=== PATIENT | female | born 1990 | race Caucasian/White ===

== ENCOUNTER 2019-03-11 19:57 | Observation (INO) | payer MEDICAID ==
[2019-03-11] MEDS ORDERED: Sodium Chloride 0.9% 10 ML Syringe FLUSH PRN (20:39)
--- NOTE | 2019-03-11 20:43 | EDM.PDOC ---
ED HPI GENERAL MEDICAL PROBLEM - General Chief Complaint: Abdominal Pain Stated Complaint: ABDOMINAL PAIN Time Seen by Provider: 03/11/19 20:36 Source of Information: Reports: Patient, RN Notes Reviewed History Limitations: Reports: No Limitations - History of Present Illness INITIAL COMMENTS - FREE TEXT/NARRATIVE: 28-year-old female presents emergency department today complaint of abdominal pain, states the abdominal pain has been ongoing for 4 days and is progressively getting worse does wax and wane predominantly in the right upper quadrant. Initially had nausea and vomiting that now has resolved but still gets nausea alone, has had difficulty with diarrhea. History of section for surgeries she does not appreciate any change with abdominal pain with food denies any fevers Bilateral Abdomen Pain Score (Numeric/FACES): 7 - Related Data Allergies Allergy/AdvReac Type Severity Reaction Status Date / Time No Known Allergies Allergy Verified 03/11/19 20:27 Home Meds: Home Meds Omeprazole 40 mg PO DAILY 03/11/19 [History] Past Medical History HEENT History: Reports: Impaired Vision Cardiovascular History: Reports: Heart Murmur Respiratory History: Reports: Asthma Gastrointestinal History: Reports: GERD NON DESTRUCTIVE TESTING INSPECTOR History: Reports: Other NON DESTRUCTIVE TESTING INSPECTOR History: high risk Psychiatric History: Reports: Anxiety Dermatologic History: Reports: Eczema - Infectious Disease History Infectious Disease History: Reports: Chicken Pox - Past Surgical History Female Surgical History: Reports: Section, Other (See Below) Other Female Surgeries/Procedures: Social & Family History - Family History Family Medical History: Noncontributory - Tobacco Use Smoking Status *Q: Never Smoker - Caffeine Use Caffeine Use: Reports: Coffee, Energy Drinks, Soda Caffeine Use Comment: weekly use, not often - Alcohol Use Days Per Week of Alcohol Use: 2 Number of Drinks Per Day: 3 Total Drinks Per Week: 6 - Recreational Drug Use Recreational Drug Use: No ED ROS GENERAL - Review of Systems Review Of Systems: See Below Constitutional: Denies: Fever, Chills HEENT: Reports: No Symptoms Respiratory: Reports: No Symptoms Cardiovascular: Reports: No Symptoms GI/Abdominal: Reports: Abdominal Pain, Diarrhea, Flatus, Nausea, Vomiting : Reports: No Symptoms Musculoskeletal: Reports: No Symptoms Skin: Reports: No Symptoms ED EXAM, GI/ABD - Physical Exam Exam: See Below Exam Limited By: No Limitations General Appearance: Alert, WD/WN, No Apparent Distress Neck: Normal Inspection, Supple, Non-Tender, Full Range of Motion Respiratory/Chest: No Respiratory Distress, Lungs Clear, Normal Breath Sounds, No Accessory Muscle Use, Chest Non-Tender Cardiovascular: Regular Rate, Rhythm, No Murmur GI/Abdominal Exam: Normal Bowel Sounds, Soft, Distended, Tender (Right upper quadrant pain) Course - Vital Signs Last Recorded V/S: Last Vital Signs Temp 98.7 F 03/11/19 20:27 Pulse 96 03/11/19 20:27 Resp 18 03/11/19 20:27 BP 136/83 03/11/19 20:27 Pulse Ox 97 03/11/19 20:27 - Orders/Labs/Meds Orders: Active Orders 24 hr Category Date Time Status Peripheral IV Care [RC] . DIRECTED Care 03/11/19 20:40 Active Iopamidol [Isovue-300 (61%)] Med 03/11/19 21:30 Active 129 ml IV . DIRECTED Lactated Ringers [Ringers, Lactated] 1,000 ml Med 03/11/19 20:45 Active IV ASDIRECTED Sodium Chloride 0.9% [Normal Saline] 80 ml Med 03/11/19 21:30 Active IV ASDIRECTED Sodium Chloride 0.9% [Saline Flush] Med 03/11/19 20:39 Active 10 ml FLUSH ASDIRECTED PRN Peripheral IV Insertion Adult [OM.PC] Urgent Oth 03/11/19 20:39 Ordered Medication Orders Lactated Ringer's (Ringers, Lactated) 1,000 mls @ 999 mls/hr IV ASDIRECTED [facility] Last Admin: 03/11/19 21:09 Dose: 999 mls/hr Sodium Chloride (Normal Saline) 80 mls @ 3 mls/sec IV ASDIRECTED STEPHEN Last Admin: 03/11/19 21:33 Dose: 3 mls/sec Iopamidol (Isovue-300 (61%)) 129 ml IV . DIRECTED [facility] Last Admin: 03/11/19 21:34 Dose: 129 ml Sodium Chloride (Saline Flush) 10 ml FLUSH ASDIRECTED PRN PRN Reason: Keep Vein Open Last Admin: 03/11/19 21:33 Dose: 10 ml Labs: Laboratory Tests 03/11/19 03/11/19 03/11/19 Range/Units 20:39 20:39 20:39 WBC 13.5 H (4.5-11.0) K/uL RBC 4.97 (3.30-5.50) M/uL Hgb 12.8 (12.0-15.0) g/dL Hct 39.9 (36.0-48.0) % MCV 80 (80-98) fL MCH 26 L (27-31) pg MCHC 32 (32-36) % Plt Count 246 (150-400) K/uL Neut % (Auto) 72 H (36-66) % Lymph % (Auto) 16 L (24-44) % [place] % (Auto) 9 H (2-6) % Eos % (Auto) 3 (2-4) % Baso % (Auto) 0 (0-1) % Sodium 137 L (140-148) mmol/L Potassium 3.3 L (3.6-5.2) mmol/L Chloride 101 (100-108) mmol/L Carbon Dioxide 26 (21-32) mmol/L Anion Gap 13.3 (5.0-14.0) mmol/L BUN 10 (7-18) mg/dL Creatinine 0.6 (0.6-1.0) mg/dL Est Cr Clr Drug Dosing 116.95 mL/min Estimated GFR (MDRD) > 60 (>60) Glucose 109 H (74-106) mg/dL Lactic Acid 1.6 (0.4-2.0) mmol/L Calcium 8.6 (8.5-10.1) mg/dL Total Bilirubin 0.5 (0.2-1.0) mg/dL AST 49 H (15-37) U/L ALT 71 (12-78) U/L Alkaline Phosphatase 103 (46-116) U/L Total Protein 7.3 (6.4-8.2) g/dL Albumin 3.3 L (3.4-5.0) g/dL Globulin 4.0 H (2.3-3.5) g/dL Albumin/Globulin Ratio 0.8 L (1.2-2.2) Lipase 68 L (73-393) U/L Urine Color (YELLOW) Urine Appearance (CLEAR) Urine pH (5.0-8.0) Ur Specific [address] (1.008-1.030) Urine Protein (NEGATIVE) mg/dL Urine Glucose (UA) (NEGATIVE) mg/dL Urine Ketones (NEGATIVE) mg/dL Urine Occult Blood (NEGATIVE) Urine Nitrite (NEGATIVE) Urine Bilirubin (NEGATIVE) Urine Urobilinogen (0.2-1.0) EU/dL Ur Leukocyte Esterase (NEGATIVE) Urine RBC (0-5) Urine WBC (0-5) Ur Epithelial Cells Amorphous Sediment Urine Bacteria Urine Mucus Urine HCG, Qual 03/11/19 03/11/19 Range/Units 20:48 20:48 WBC (4.5-11.0) K/uL RBC (3.30-5.50) M/uL Hgb (12.0-15.0) g/dL Hct (36.0-48.0) % MCV (80-98) fL MCH (27-31) pg MCHC (32-36) % Plt Count (150-400) K/uL Neut % (Auto) (36-66) % Lymph % (Auto) (24-44) % [place] % (Auto) (2-6) % Eos % (Auto) (2-4) % Baso % (Auto) (0-1) % Sodium (140-148) mmol/L Potassium (3.6-5.2) mmol/L Chloride (100-108) mmol/L Carbon Dioxide (21-32) mmol/L Anion Gap (5.0-14.0) mmol/L BUN (7-18) mg/dL Creatinine (0.6-1.0) mg/dL Est Cr Clr Drug Dosing mL/min Estimated GFR (MDRD) (>60) Glucose (74-106) mg/dL Lactic Acid (0.4-2.0) mmol/L Calcium (8.5-10.1) mg/dL Total Bilirubin (0.2-1.0) mg/dL AST (15-37) U/L ALT (12-78) U/L Alkaline Phosphatase (46-116) U/L Total Protein (6.4-8.2) g/dL Albumin (3.4-5.0) g/dL Globulin (2.3-3.5) g/dL Albumin/Globulin Ratio (1.2-2.2) Lipase (73-393) U/L Urine Color Yellow (YELLOW) Urine Appearance Clear (CLEAR) Urine pH 7.5 (5.0-8.0) Ur Specific [address] 1.015 (1.008-1.030) Urine Protein Negative (NEGATIVE) mg/dL Urine Glucose (UA) Negative (NEGATIVE) mg/dL Urine Ketones Negative (NEGATIVE) mg/dL Urine Occult Blood Moderate H (NEGATIVE) Urine Nitrite Negative (NEGATIVE) Urine Bilirubin Negative (NEGATIVE) Urine Urobilinogen 2.0 H (0.2-1.0) EU/dL Ur Leukocyte Esterase Negative (NEGATIVE) Urine RBC 5-10 H (0-5) Urine WBC 0-5 (0-5) Ur Epithelial Cells Moderate Amorphous Sediment Few Urine Bacteria Few Urine Mucus Few Urine HCG, Qual Negative Meds: Medications Generic Name Dose Route Start Last Admin Trade Name Freq PRN Reason Stop Dose Admin Lactated Ringer's 1,000 mls @ 999 mls/hr 03/11/19 20:45 03/11/19 21:09 Ringers, Lactated IV 999 mls/hr ASDIRECTED STEPHEN Administration Sodium Chloride 80 mls @ 3 mls/sec 03/11/19 21:30 03/11/19 21:33 Normal Saline IV 3 mls/sec ASDIRECTED STEPHEN Administration Iopamidol 129 ml 03/11/19 21:30 03/11/19 21:34 Isovue-300 (61%) IV 129 ml . DIRECTED STEPHEN Administration Sodium Chloride 10 ml 03/11/19 20:39 03/11/19 21:33 Saline Flush FLUSH 10 ml ASDIRECTED PRN Administration Keep Vein Open Discontinued Medications Generic Name Dose Route Start Last Admin Trade Name Freq PRN Reason Stop Dose Admin Fentanyl 50 mcg 03/11/19 23:00 Sublimaze IVPUSH 03/11/19 23:01 ONETIME ONE Ondansetron HCl 4 mg 03/11/19 23:00 Zofran IVPUSH 03/11/19 23:01 ONETIME ONE Departure - Departure Time of Disposition: 23:09 Disposition: Admitted As Inpatient 65 Condition: Fair Clinical Impression: Acute cholecystitis - Discharge Information Referrals: PCP,None [Primary Care Provider] - Forms: ED Department Discharge - My Orders Last 24 Hours: My Active Orders 03/11/19 20:39 Sodium Chloride 0.9% [Saline Flush] 10 ml FLUSH ASDIRECTED PRN Peripheral IV Insertion Adult [OM.PC] Urgent 03/11/19 20:40 Peripheral IV Care [RC] . DIRECTED 03/11/19 20:45 Lactated Ringers [Ringers, Lactated] 1,000 ml IV ASDIRECTED 03/11/19 21:30 Iopamidol [Isovue-300 (61%)] 129 ml IV . DIRECTED Sodium Chloride 0.9% [Normal Saline] 80 ml IV ASDIRECTED - Assessment/Plan Last 24 Hours: My Active Orders 03/11/19 20:39 Sodium Chloride 0.9% [Saline Flush] 10 ml FLUSH ASDIRECTED PRN Peripheral IV Insertion Adult [OM.PC] Urgent 03/11/19 20:40 Peripheral IV Care [RC] . DIRECTED 03/11/19 20:45 Lactated Ringers [Ringers, Lactated] 1,000 ml IV ASDIRECTED 03/11/19 21:30 Iopamidol [Isovue-300 (61%)] 129 ml IV . DIRECTED Sodium Chloride 0.9% [Normal Saline] 80 ml IV ASDIRECTED Plan: Assessment Acuity = acute Site and laterality = acute cholecystitis Etiology = unclear etiology Manifestations = abdominal pain, nausea, vomiting Location of injury = Home Lab values = WBC elevated 13.5 consistent leukocytosis, potassium low at 3.3 consistent hypokalemia RBC 5-10 in the urine consistent hematuria beta-hCG is negative CT scan describes acute cholecystitis above Plan Called discussed case with Dr. Mar general surgery at 2300 kindly agreed to come and evaluate the patient in the hospital plan start antibiotics of Mefoxin nothing by mouth IN THE MORNING SURGICAL INTERVENTION IN THE MORNING This note was dictated using [employer] voice recognition software please call with any questions on syntax or grammar.
[2019-03-11] MEDS ORDERED: Lactated Ringers 1,000 ML IV SCH (20:45)
[2019-03-11] MEDS ORDERED: Iopamidol 612 MG/ML 150 ML Bottle IV SCH (21:30)
[2019-03-11] MEDS ORDERED: Sodium Chloride 0.9% 80 ML IV SCH (21:30)
--- NOTE | 2019-03-11 22:54 | CRLCT ---
INDICATION: Right upper quadrant pain TECHNIQUE: CT abdomen and pelvis acquired with IV contrast. 129 cc Isovue-300 COMPARISON: None FINDINGS: Lower chest: Unremarkable. Liver: Unremarkable. Spleen: Unremarkable. Pancreas: Unremarkable. Gallbladder and bile ducts: Distended gallbladder with gallbladder wall thickening, trace pericholecystic fluid and pericholecystic fat stranding. Findings consistent with acute cholecystitis. Kidneys: Unremarkable. Adrenal glands: Unremarkable. GI tract: Unremarkable. Appendix is normal. Vascular structures: Unremarkable. Lymph nodes: Unremarkable. Miscellaneous: Unremarkable. No free air. Small amount of low-density free fluid in the pelvis. Pelvic Organs: Unremarkable. Bones: Unremarkable for age. IMPRESSION: Distended gallbladder with gallbladder wall thickening, trace pericholecystic fluid and pericholecystic fat stranding. Findings consistent with acute cholecystitis. Right upper quadrant ultrasound may be helpful to better characterize. Dictated by Michael Mancuso MD @ 03/11/2019 10:53:03 PM Please note that all CT scans at this facility use dose modulation, iterative reconstruction, and/or weight-based dosing when appropriate to reduce radiation dose to as low as reasonably achievable. Dictated by: Michael Mancuso MD @ 03/11/2019 22:53:08 (Electronically Signed)
[2019-03-11] MEDS ORDERED: Ondansetron 4 MG/2 ML SDV IVPUSH ONE (23:00)
[2019-03-11] MEDS ORDERED: fentaNYL 100 MCG/2 ML SDV IVPUSH ONE (23:00)
[2019-03-12] MEDS: D5 1/2 NS w/ 20 mEq/L KCl 1,000 ML IV SCH ×3 (00:16→19:50)
[2019-03-12] MEDS: fentaNYL 100 MCG/2 ML SDV IVPUSH PRN ×5 (00:26→19:13)
[2019-03-12] MEDS: cefOXitin 2 GM in Sodium Chloride 0.9% 50 ML IV SCH ×4 (00:30→22:46)
[2019-03-12] MEDS ORDERED: Bupivacaine 0.5% 50 ML MDV ONE (07:15)
[2019-03-12] MEDS ORDERED: Lidocaine 1% with EPINEPHrine 1:100,000 50 ML MDV ONE (07:15)
[2019-03-12] MEDS ORDERED: fentaNYL 250 MCG/5 ML SDV ONE ×2 (07:18→07:48)
[2019-03-12] MEDS ORDERED: Succinylcholine 200 MG/10 ML MDV ONE (07:21)
[2019-03-12] MEDS ORDERED: Propofol 200 MG/20 ML SDV ONE (07:21)
[2019-03-12] MEDS ORDERED: Rocuronium 50 MG/5 ML Vial ONE (07:21)
[2019-03-12] MEDS ORDERED: Ondansetron 4 MG/2 ML SDV ONE (07:21)
[2019-03-12] MEDS ORDERED: Dexamethasone 4 MG/ML SDV ONE (07:21)
[2019-03-12] MEDS ORDERED: Glycopyrrolate 0.2 MG/ML 5 ML MDV ONE (07:21)
[2019-03-12] MEDS ORDERED: Neostigmine Methylsulfate 1 MG/ML 5 ML Syringe ONE (07:21)
[2019-03-12] MEDS ORDERED: Lidocaine 1% 2 ML ONE (07:44)
--- NOTE | 2019-03-12 08:20 | CRLUS ---
INDICATION: Right upper quadrant pain TECHNIQUE: Ultrasound abdomen limited. COMPARISON: CT abdomen pelvis March 11, 2019 FINDINGS: Gallbladder: At least 1 stone is present in the cystic duct. There is wall thickening measuring 5 mm. There is also pericholecystic fluid. Common bile duct: 6 mm. IMPRESSION: Cholelithiasis with gallbladder wall thickening consistent with acute cholecystitis. Dictated by Manjinder Wheeler MD @ Mar 12 2019 8:11AM Signed by Dr. Manjinder Wheeler @ Mar 12 2019 8:18AM
[2019-03-12] MEDS ORDERED: Lactated Ringers 1,000 ML ONE (08:45)
[2019-03-12] MEDS ORDERED: hydrOXYzine HCl 100 MG/2 ML SDV IM ONE (09:22)
[2019-03-12] MEDS ORDERED: fentaNYL 100 MCG/2 ML SDV IVPUSH ONE (09:22)
--- NOTE | 2019-03-12 13:07 | OR ---
DATE OF PROCEDURE: 03/12/2019 SURGEON: Edinson Mar MD PREOPERATIVE DIAGNOSIS: Acute cholecystitis. POSTOPERATIVE DIAGNOSES: Acute cholecystitis with cholelithiasis. PROCEDURE: Laparoscopic cholecystectomy. ANESTHESIA: General endotracheal. INDICATION: This 28-year-old white female was admitted last night with about 4 days of right upper quadrant abdominal pain. She had a CT scan of her abdomen and pelvis, which showed acute cholecystitis. There was thickened gallbladder wall and pericholecystic fluid. No stones were seen. Her ductal system was unremarkable. Her liver functions showed alkaline phosphatase and total bilirubin to be normal. She is taken to the operating room for a laparoscopic cholecystectomy. I counseled her for surgery, including risks and alternatives, and she gave her informed consent to proceed. DESCRIPTION OF PROCEDURE: After adequate general endotracheal anesthesia was obtained, the patient's abdomen was prepped and draped in the usual sterile fashion. The leg compression stockings were in place and used during the entire procedure. Time-out was held. An infraumbilical semicircular incision was made. Through this incision, a 12-mm port was introduced into the abdomen. The camera was introduced into the abdomen, and the abdomen was insufflated to a pressure of 15 mmHg with carbon dioxide. No evidence of intraabdominal injury was seen. Under direct vision, a 12-mm port was placed in the epigastrium and a 5-mm port was placed in the right lower quadrant. The gallbladder was noted to be erythematous and encased with omentum. The omentum was carefully dissected free. The gallbladder was quite thick. We were able to dissect the cystic duct and arteries free and drain all this process. The gallbladder was open. We aspirated out clear bile consistent with chronic cystic duct obstruction. The cystic duct was clipped 3 times proximally, once distally and divided between clips. The cystic artery was clipped a couple of times proximally, once distally and divided between clips. The gallbladder was then dissected free from the gallbladder bed using Bovie electrocautery. The gallbladder basically fell apart. It was placed in a sample retrieval bag and elevated up through the anterior abdominal wall via the epigastric port site. The epigastric port was reintroduced back in the abdomen. The gallbladder bed was irrigated and suctioned dry. All looked well. Because of all the inflammation and spillage of bile, we left a Niko-Toscano drain in place. This was brought out through the 5-mm port site in the right lower quadrant and was placed up in the area of the gallbladder fossa. The fascial closure device was then used to place a 0 Vicryl stitch in the epigastric fascial defect. The infraumbilical port was removed and an interrupted stitch of #1 Vicryl was used to close this fascial defect. The Niko-Toscano drain was anchored with #1 Vicryl suture. Lidocaine 1% with epinephrine in a 50:50 mix with 0.5% Marcaine was infiltrated about all incisions. 4-0 Vicryl using a subcuticular stitch was placed to approximate the skin in the infraumbilical and epigastric incisions. Dermabond was applied and a sterile dressing to the Niko-Toscano drain. The anesthesia was reversed. She was extubated and brought to recovery room in a good condition. Edinson Mar MD /[id number]
[2019-03-12] MEDS: Acetaminophen/HYDROcodone 325-5 MG Tab PO PRN ×2 (18:02→22:46)
[2019-03-13] MEDS: Acetaminophen/HYDROcodone 325-5 MG Tab PO PRN ×3 (03:10→11:13)
[2019-03-13] MEDS: D5 1/2 NS w/ 20 mEq/L KCl 1,000 ML IV SCH (04:26)
[2019-03-13] MEDS: cefOXitin 2 GM in Sodium Chloride 0.9% 50 ML IV SCH ×3 (07:17→23:15)
[2019-03-13] MEDS: Ondansetron 4 MG/2 ML SDV IVPUSH PRN ×2 (08:53→13:30)
[2019-03-13] MEDS ORDERED: Bisacodyl 10 MG Supp RECTAL ONE ×2 (10:12→13:00)
--- NOTE | 2019-03-13 10:18 | PCM.SURGPN ---
- General Info Date of Service: 03/13/19 Date of Surgery/Procedure: 03/12/19 POD#: 1 Post-Op Diagnosis: Acute cholecystitis with cholelithiasis Functional Status: Reports: Pain Controlled, Ambulating, Urinating. Denies: Tolerating Diet (Ate regular diet which caused nausea. ) - Review of Systems General: Reports: No Symptoms HEENT: Reports: No Symptoms Pulmonary: Reports: No Symptoms Cardiovascular: Reports: No Symptoms Gastrointestinal: Reports: Nausea. Denies: Flatus Genitourinary: Reports: No Symptoms Musculoskeletal: Reports: No Symptoms Skin: Reports: No Symptoms Neurological: Reports: No Symptoms Psychiatric: Reports: No Symptoms - Patient Data Vitals - Most Recent: Last Vital Signs Temp 96.9 F 03/13/19 07:22 Pulse 57 L 03/13/19 07:22 Resp 20 03/13/19 07:22 BP 101/64 03/13/19 07:22 Pulse Ox 98 03/13/19 07:22 Weight - Most Recent: 190 lb 4.143 oz I&O - Last 24 Hours: Intake & Output 03/12/19 03/13/19 03/13/19 22:59 06:59 14:59 Intake Total 350 2684 170 Output Total 1050 25 Balance -700 2659 170 Lab Results Last 24 Hrs: Laboratory Results - last 24 hr 03/13/19 03/13/19 Range/Units 07:01 07:01 WBC 9.7 (4.5-11.0) K/uL RBC 4.51 (3.30-5.50) M/uL Hgb 11.7 L (12.0-15.0) g/dL Hct 37.1 (36.0-48.0) % MCV 82 (80-98) fL MCH 26 L (27-31) pg MCHC 32 (32-36) % Plt Count 222 (150-400) K/uL Total Bilirubin 0.5 (0.2-1.0) mg/dL Direct Bilirubin 0.15 (0.0-0.2) mg/dL Indirect Bilirubin 0.35 AST 65 H (15-37) U/L ALT 99 H (12-78) U/L Alkaline Phosphatase 95 (46-116) U/L Total Protein 6.6 (6.4-8.2) g/dL Albumin 2.8 L (3.4-5.0) g/dL Globulin 3.8 H (2.3-3.5) g/dL Albumin/Globulin Ratio 0.7 L (1.2-2.2) Royal Results Last 24 Hrs: Microbiology 03/12/19 10:46 Gram Stain - Final Gallbladder Wound Culture - Preliminary NO GROWTH AFTER 1 DAY Anaerobic Culture - Preliminary NO GROWTH AFTER 1 DAY Med Orders - Current: Current Medications Hydrocodone Bitart/Acetaminophen ([place] 325-5 Mg) 2 tab PO Q4H PRN PRN Reason: Abdominal Pain Last Admin: 03/13/19 07:10 Dose: 2 tab Bisacodyl (Dulcolax) 10 mg RECTAL ONETIME ONE Stop: 03/13/19 10:13 Fentanyl (Sublimaze) 50 mcg IVPUSH Q4H PRN PRN Reason: Pain (severe 7-10) Last Admin: 03/12/19 19:13 Dose: 50 mcg Cefoxitin Sodium 2 gm/ Sodium (Chloride) 50 mls @ 100 mls/hr IV Q8H STEPHEN Last Admin: 03/13/19 07:17 Dose: 100 mls/hr Potassium Chloride/Dextrose/Sod Cl (D5 1/2 Ns W/ 20 Meq/L Kcl) 1,000 mls @ 125 mls/hr IV ASDIRECTED STEPHEN Last Admin: 03/13/19 04:26 Dose: 125 mls/hr Ondansetron HCl (Zofran) 4 mg IVPUSH Q4H PRN PRN Reason: Nausea/Vomiting Last Admin: 03/13/19 08:53 Dose: 4 mg Sodium Chloride (Saline Flush) 10 ml FLUSH ASDIRECTED PRN PRN Reason: Keep Vein Open Last Admin: 03/11/19 21:33 Dose: 10 ml Discontinued Medications Bupivacaine HCl (Marcaine 0.5%) Confirm Administered Dose 50 ml .ROUTE .STK-MED ONE Stop: 03/12/19 07:16 Last Admin: 03/12/19 08:11 Dose: 20 ml Dexamethasone (Dexamethasone) Confirm Administered Dose 4 mg .ROUTE .STK-MED ONE Stop: 03/12/19 07:22 Fentanyl (Sublimaze) 50 mcg IVPUSH ONETIME ONE Stop: 03/11/19 23:01 Last Admin: 03/11/19 23:20 Dose: 50 mcg Fentanyl (Sublimaze) 50 mcg IVPUSH Q6H PRN PRN Reason: Pain (severe 7-10) Last Admin: 03/12/19 04:43 Dose: 50 mcg Fentanyl (Sublimaze) Confirm Administered Dose 250 mcg .ROUTE .STK-MED ONE Stop: 03/12/19 07:19 Fentanyl (Sublimaze) Confirm Administered Dose 250 mcg .ROUTE .STK-MED ONE Stop: 03/12/19 07:49 Fentanyl (Sublimaze) 50 mcg IVPUSH ONETIME ONE Stop: 03/12/19 09:23 Last Admin: 03/12/19 09:29 Dose: 50 mcg Glycopyrrolate (Robinul) Confirm Administered Dose 1 mg .ROUTE .STK-MED ONE Stop: 03/12/19 07:22 Hydroxyzine HCl (Vistaril) 75 mg IM ONETIME ONE Stop: 03/12/19 09:23 Last Admin: 03/12/19 09:29 Dose: 75 mg Lactated Ringer's (Ringers, Lactated) 1,000 mls @ 999 mls/hr IV ASDIRECTED [facility] Last Admin: 03/11/19 21:09 Dose: 999 mls/hr Sodium Chloride (Normal Saline) 80 mls @ 3 mls/sec IV ASDIRECTED [facility] Last Admin: 03/11/19 21:33 Dose: 3 mls/sec Lidocaine HCl (Xylocaine-Mpf 1%) Confirm Administered Dose 2 mls @ as directed .ROUTE .STK-MED ONE Stop: 03/12/19 07:45 Lactated Ringer's (Ringers, Lactated) Confirm Administered Dose 1,000 mls @ as directed .ROUTE .STK-MED ONE Stop: 03/12/19 08:46 Iopamidol (Isovue-300 (61%)) 129 ml IV . DIRECTED [facility] Last Admin: 03/11/19 21:34 Dose: 129 ml Lidocaine/Epinephrine (Xylocaine 1% With Epinephrine 1:100,000) Confirm Administered Dose 50 ml .ROUTE .STK-MED ONE Stop: 03/12/19 07:16 Last Admin: 03/12/19 08:11 Dose: 20 ml Neostigmine Methylsulfate (Neostigmine) Confirm Administered Dose 5 mg .ROUTE .STK-MED ONE Stop: 03/12/19 07:22 Ondansetron HCl (Zofran) 4 mg IVPUSH ONETIME ONE Stop: 03/11/19 23:01 Last Admin: 03/11/19 23:17 Dose: 4 mg Ondansetron HCl (Zofran) Confirm Administered Dose 4 mg .ROUTE .STK-MED ONE Stop: 03/12/19 07:22 Propofol (Diprivan 20 Ml) Confirm Administered Dose 200 mg .ROUTE .STK-MED ONE Stop: 03/12/19 07:22 Rocuronium [place] (Zemuron) Confirm Administered Dose 50 mg .ROUTE .STK-MED ONE Stop: 03/12/19 07:22 Succinylcholine Chloride (Quelicin) Confirm Administered Dose 200 mg .ROUTE .STK -MED ONE Stop: 03/12/19 07:22 - Exam Wound/Incisions: Healing Well General: Alert, Oriented, Cooperative, No Acute Distress Lungs: Clear to Auscultation Cardiovascular: Regular Rate, Regular Rhythm GI/Abdominal Exam: Normal Bowel Sounds Extremities: Normal Inspection Skin: Warm, Dry, Intact Neurological: No New Focal Deficit Psy/Mental Status: Alert, Normal Affect, Normal Mood - Problem List & Annotations (1) Acute cholecystitis SNOMED Code(s): 28424370 Code(s): K81.0 - ACUTE CHOLECYSTITIS Status: Acute Current Visit: Yes - Problem List Review Problem List Initiated/Reviewed/Updated: Yes - My Orders Last 24 Hours: Active Orders 24 hr Category Date Time Status Regular Diet [DIET] Diet 03/13/19 Breakfast Active CULTURE ANAEROBIC [RM] Routine Lab 03/12/19 10:46 Results CULTURE WOUND + SMEAR [RM] Routine Lab 03/12/19 10:46 Results Acetaminophen/HYDROcodone [[place] 325-5 MG] Med 03/12/19 17:06 Active 2 tab PO Q4H PRN Bisacodyl [Dulcolax] Med 03/13/19 10:12 Once 10 mg RECTAL ONETIME ONE Medication Orders Hydrocodone Bitart/Acetaminophen ([place] 325-5 Mg) 2 tab PO Q4H PRN PRN Reason: Abdominal Pain Last Admin: 03/13/19 07:10 Dose: 2 tab Admin: 03/13/19 03:10 Dose: 2 tab Admin: 03/12/19 22:46 Dose: 2 tab Admin: 03/12/19 18:02 Dose: 2 tab Bisacodyl (Dulcolax) 10 mg RECTAL ONETIME ONE Stop: 03/13/19 10:13 Fentanyl (Sublimaze) 50 mcg IVPUSH Q4H PRN PRN Reason: Pain (severe 7-10) Last Admin: 03/12/19 19:13 Dose: 50 mcg Admin: 03/12/19 14:36 Dose: 50 mcg Admin: 03/12/19 11:27 Dose: 50 mcg Cefoxitin Sodium 2 gm/ Sodium (Chloride) 50 mls @ 100 mls/hr IV Q8H [facility] Last Admin: 03/13/19 07:17 Dose: 100 mls/hr Admin: 03/12/19 22:46 Dose: 100 mls/hr Admin: 03/12/19 15:17 Dose: 100 mls/hr Admin: 03/12/19 07:16 Dose: 100 mls/hr Admin: 03/12/19 00:30 Dose: 100 mls/hr Potassium Chloride/Dextrose/Sod Cl (D5 1/2 Ns W/ 20 Meq/L Kcl) 1,000 mls @ 125 mls/hr IV ASDIRECTED [facility] Last Admin: 03/13/19 04:26 Dose: 125 mls/hr Admin: 03/12/19 19:50 Dose: 125 mls/hr Infusion: 03/12/19 19:23 Dose: 125 mls/hr Admin: 03/12/19 11:23 Dose: 125 mls/hr Infusion: 03/12/19 08:16 Dose: 125 mls/hr Admin: 03/12/19 00:16 Dose: 125 mls/hr Ondansetron HCl (Zofran) 4 mg IVPUSH Q4H PRN PRN Reason: Nausea/Vomiting Last Admin: 03/13/19 08:53 Dose: 4 mg Sodium Chloride (Saline Flush) 10 ml FLUSH ASDIRECTED PRN PRN Reason: Keep Vein Open Last Admin: 03/11/19 21:33 Dose: 10 ml - Assessment Assessment (Free Text/Narrative):: WBC and LFT's OK. Slow GI recovery. GB cultures negative so far. - Plan Plan (Free Text/Narrative):: Dulcolax suppository. Hopefully home later today.
[2019-03-13] MEDS: Ketorolac 10 MG Tab PO SCH ×2 (14:31→19:51)
[2019-03-13] MEDS: Docusate Sodium 100 MG Cap PO PRN ×2 (14:36→23:15)
[2019-03-13] MEDS ORDERED: Ondansetron 4 MG Tab.DIS PO PRN (23:28)
[2019-03-14] MEDS: Ketorolac 10 MG Tab PO SCH ×2 (02:05→07:49)
[2019-03-14] MEDS: Docusate Sodium 100 MG Cap PO PRN (09:46)
== END 2019-03-14 09:48 | disposition home or self-care (01) ==
LOC: JP.ED 19:57 → JP.ICU 23:10 → JP.MS 03-12 17:20
PROVIDERS: ADMIT Surgery; ATTEND Surgery
DX: K80.10 Calculus of gallbladder with chronic cholecystitis without obstruction (principal); J45.909 Unspecified asthma, uncomplicated; K21.9 Gastro-esophageal reflux disease without esophagitis
CPT/HCPCS: 36415; 47562; 74177; 76705; 80053; 80076; 81001; 81025; 83605; 83690; 85025; 85027; 87070; 87075; 87205; 96360; 99285; A9270; J0330; J0694; J1100; J2001; J2405; J2704; J2710; J3010; J3410; J3480; J3490; J7030; J7050; J7120; 88304

== ENCOUNTER 2021-03-01 10:18 | Emergency (ER) | payer MEDICAID ==
[2021-03-01] MEDS ORDERED: Sodium Chloride 0.9% 10 ML Syringe FLUSH PRN (10:39)
[2021-03-01] MEDS ORDERED: Ondansetron 4 MG/2 ML SDV IVPUSH ONE (10:39)
[2021-03-01] MEDS ORDERED: Sodium Chloride 0.9% 1,000 ML IV SCH (10:45)
--- NOTE | 2021-03-01 12:24 | EDM.PDOC ---
ED HPI GENERAL MEDICAL PROBLEM - General Chief Complaint: Gastrointestinal Problem Stated Complaint: POSSIBLE DEHYDRATION Time Seen by Provider: 03/01/21 10:27 Source of Information: Reports: Patient History Limitations: Reports: No Limitations - History of Present Illness INITIAL COMMENTS - FREE TEXT/NARRATIVE: Alexa is a 30-year-old female presenting to the ED for evaluation of ongoing issues with nausea, vomiting, and diarrhea. Her symptoms started roughly 5 days ago. The patient thought she initially had food poisoning with acute onset of nausea, vomiting followed by diarrhea. Over the weekend she continued to have symptoms and is now presenting because of intractable vomiting. She is having difficulty keeping fluids down. She reports having 5-6 diarrheal bowel movements already today. She reports abdominal cramping but denies any fever, chills, shortness of breath or cough, loss of taste or smell, headache or body aches. She has not been vaccinated for Covid. No one else at home has been ill. Abdominal Pain Score (Numeric/FACES): 6 - Related Data Allergies Allergy/AdvReac Type Severity Reaction Status Date / Time No Known Allergies Allergy Verified 03/01/21 10:30 Home Meds: Home Meds Ascorbic Acid/Elderberry Fruit [Elderberry-Vit C 50-100 mg Chw] 1 each PO DAILY 03/01/21 [History] Multivitamin [Multi-Vitamin Daily] 1 each PO DAILY 03/01/21 [History] Ondansetron [Zofran ODT] 4 mg PO Q6H PRN #20 tab.dis 03/01/21 [Rx] Past Medical History HEENT History: Reports: Impaired Vision Cardiovascular History: Reports: Heart Murmur Respiratory History: Reports: Asthma Gastrointestinal History: Reports: GERD 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: 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 Psychiatric History: Reports: Anxiety Endocrine/Metabolic History: Reports: Obesity/BMI 30+ Dermatologic History: Reports: Eczema - Infectious Disease History Infectious Disease History: Reports: Chicken Pox - Past Surgical History Female Surgical History: Reports: Section, Other (See Below) Other Female Surgeries/Procedures: Social & Family History - Family History Family Medical History: No Pertinent Family History - Tobacco Use Tobacco Use Status *Q: Never Tobacco User - Caffeine Use Caffeine Use: Reports: Soda Caffeine Use Comment: weekly use, not often - Recreational Drug Use Recreational Drug Use: No ED ROS GENERAL - Review of Systems Review Of Systems: See Below Constitutional: Reports: Fatigue, Decreased Appetite HEENT: Reports: No Symptoms Respiratory: Reports: No Symptoms Cardiovascular: Reports: No Symptoms Endocrine: Reports: No Symptoms GI/Abdominal: Reports: Abdominal Pain, Diarrhea, Nausea, Vomiting : Reports: No Symptoms Musculoskeletal: Reports: No Symptoms Skin: Reports: No Symptoms Neurological: Reports: No Symptoms Psychiatric: Reports: No Symptoms Hematologic/Lymphatic: Reports: No Symptoms Immunologic: Reports: No Symptoms ED EXAM, GI/ABD - Physical Exam Exam: See Below Exam Limited By: No Limitations General Appearance: Alert, Anxious, Mild Distress Eyes: Bilateral: EOMI Throat/Mouth: Normal Inspection, Normal Oropharynx, Normal Voice, No Airway Compromise Head: Atraumatic, Normocephalic Neck: Normal Inspection, Supple. No: Lymphadenopathy (R), Lymphadenopathy (L) Respiratory/Chest: No Respiratory Distress, Lungs Clear, Normal Breath Sounds Cardiovascular: Normal Peripheral Pulses, Regular Rate, Rhythm, No Murmur GI/Abdominal Exam: Soft, Non-Tender, Abnormal Bowel Sounds (Diminished bowel sounds). No: Guarding, Rebound Back Exam: Normal Inspection Extremities: Normal Inspection Neurological: Alert, Oriented, Normal Cognition, No Motor/Sensory Deficits Psychiatric: Normal Affect, Normal Mood Skin Exam: Warm, Dry, Intact, Normal Color Course - Vital Signs Last Recorded V/S: Last Vital Signs Temp 36.3 C 03/01/21 10:26 Pulse 83 03/01/21 11:55 Resp 12 03/01/21 11:55 BP 102/51 L 03/01/21 11:55 Pulse Ox 100 03/01/21 11:55 - Orders/Labs/Meds Orders: Active Orders 24 hr Category Date Time Status Saline Lock Insert [OM.PC] Routine Oth 03/01/21 10:39 Ordered Labs: Laboratory Tests 03/01/21 03/01/21 03/01/21 Range/Units 10:39 10:42 10:52 WBC 12.1 H (4.5-11.0) K/uL RBC 5.96 H (3.30-5.50) M/uL Hgb 15.4 H D (12.0-15.0) g/dL Hct 45.7 (36.0-48.0) % MCV 77 L (80-98) fL MCH 26 L (27-31) pg MCHC 34 (32-36) % Plt Count 291 (150-400) K/uL Neut % (Auto) 76.0 H (36-66) % Lymph % (Auto) 12.1 L (24-44) % [place] % (Auto) 10.4 H (2-6) % Eos % (Auto) 1.3 L (2-4) % Baso % (Auto) 0.2 (0-1) % Sodium 133 L (140-148) mmol/L Potassium 3.1 L (3.6-5.2) mmol/L Chloride 98 L (100-108) mmol/L Carbon Dioxide 23 (21-32) mmol/L Anion Gap 15.1 H (5.0-14.0) mmol/L BUN 14 (7-18) mg/dL Creatinine 0.8 (0.6-1.0) mg/dL Est Cr Clr Drug Dosing 87.06 mL/min Estimated GFR (MDRD) > 60 (>60) Glucose 89 (74-106) mg/dL Lactic Acid (0.4-2.0) mmol/L Calcium 8.6 (8.5-10.1) mg/dL Total Bilirubin 0.6 (0.2-1.0) mg/dL AST 11 L D (15-37) U/L ALT 25 (12-78) U/L Alkaline Phosphatase 114 (46-116) U/L Total Protein 7.9 (6.4-8.2) g/dL Albumin 3.7 (3.4-5.0) g/dL Globulin 4.2 H (2.3-3.5) g/dL Albumin/Globulin Ratio 0.9 L (1.2-2.2) SARS CoV-2 RNA Rapid FLOYD Negative 03/01/21 Range/Units 10:52 WBC (4.5-11.0) K/uL RBC (3.30-5.50) M/uL Hgb (12.0-15.0) g/dL Hct (36.0-48.0) % MCV (80-98) fL MCH (27-31) pg MCHC (32-36) % Plt Count (150-400) K/uL Neut % (Auto) (36-66) % Lymph % (Auto) (24-44) % [place] % (Auto) (2-6) % Eos % (Auto) (2-4) % Baso % (Auto) (0-1) % Sodium (140-148) mmol/L Potassium (3.6-5.2) mmol/L Chloride (100-108) mmol/L Carbon Dioxide (21-32) mmol/L Anion Gap (5.0-14.0) mmol/L BUN (7-18) mg/dL Creatinine (0.6-1.0) mg/dL Est Cr Clr Drug Dosing mL/min Estimated GFR (MDRD) (>60) Glucose (74-106) mg/dL Lactic Acid 0.8 (0.4-2.0) mmol/L Calcium (8.5-10.1) mg/dL Total Bilirubin (0.2-1.0) mg/dL AST (15-37) U/L ALT (12-78) U/L Alkaline Phosphatase (46-116) U/L Total Protein (6.4-8.2) g/dL Albumin (3.4-5.0) g/dL Globulin (2.3-3.5) g/dL Albumin/Globulin Ratio (1.2-2.2) SARS CoV-2 RNA Rapid FLOYD Meds: Medications Discontinued Medications Generic Name Dose Route Start Last Admin Trade Name Freq PRN Reason Stop Dose Admin Sodium Chloride 1,000 mls @ 999 mls/hr 03/01/21 10:45 03/01/21 10:56 Normal Saline IV 999 mls/hr ASDIRECTED STEPHEN Administration Ondansetron HCl 4 mg 03/01/21 10:39 03/01/21 10:50 Ondansetron 4 Mg/2 Ml Sdv IVPUSH 03/01/21 10:40 4 mg ONETIME ONE Administration Sodium Chloride 10 ml 03/01/21 10:39 03/01/21 10:51 Sodium Chloride 0.9% 10 Ml Syringe FLUSH 10 ml ASDIRECTED PRN Administration Keep Vein Open - Re-Assessments/Exams Free Text/Narrative Re-Assessment/Exam: 03/01/21 12:54 Alexa was given a liter of IV normal saline and Zofran 4 mg with improvement in her nausea. The fluids seem to help as well with her generalized weakness. Labs were obtained showing a mild leukocytosis at 12.1 with a left shift. Her hemoglobin is 15.4 with a hematocrit of 45.7 and a platelet count of 281,000. Her Covid status is negative. Her comprehensive metabolic panel is significant for sodium 133, potassium 3.1, chloride of 98 with a bicarbonate of 23, BUN of 14 with a creatinine of 0.8 and a glucose of 89. Liver enzymes are normal. Albumin and calcium were normal. Based on labs and exam, this is likely a viral gastroenteritis. Patient did improve after Zofran so we will continue this as an outpatient. I did recommend the patient drink electrolyte rich fluids like Gatorade Zero or propel Zero and follow the BRAT diet. In addition I gave the patient a prescription for Zofran 4 mg every 6 hours as needed for nausea and vomiting dispensing 20 tablets. Patient was also given a work note taking her off work until 03/03/2021. Indications to return to the ED were discussed and she was discharged in satisfactory condition. Departure - Departure Time of Disposition: 12:22 Disposition: Home, Self-Care 01 Clinical Impression: Viral gastroenteritis due to [place]-like agent - Discharge Information Prescriptions: Ondansetron [Zofran ODT] 4 mg PO Q6H PRN #20 tab.dis PRN Reason: Nausea/Vomiting Instructions: Viral Gastroenteritis, Adult, [id number], Nausea and Vomiting, Adult, [id number] Referrals: PCP,None [Primary Care Provider] - Forms: ED Department Discharge Care Plan Goals: I am sending you home with a prescription for Zofran that you may use every 6-8 hours as needed to control your nausea. I would encourage you to drink electrolyte rich low sugar fluids like Gatorade Zero or propel Zero. I would also recommend following the BRAT diet standing for bananas, rice, applesauce, and toast. These are things that are easier to digest and less likely to cause diarrhea. Good handwashing after using the washroom to prevent any reinfection or spread. Most cases of lasted anywhere from a couple of days to a couple of weeks. Once the diarrhea subsides I would recommend eating yogurt with active cultures to help replenish the healthy bacteria to your colon. Sepsis Event Note (ED) - Focused Exam Vital Signs: Vital Signs Temp Pulse Resp BP Pulse Ox 03/01/21 11:55 83 12 102/51 L 100 03/01/21 10:26 36.3 C 88 16 129/85 99 - Problem List & Annotations (1) Viral gastroenteritis due to [place]-like agent Status: Acute Priority: Medium Current Visit: Yes - Problem List Review Problem List Initiated/Reviewed/Updated: Yes - My Orders Last 24 Hours: My Active Orders 03/01/21 10:39 Saline Lock Insert [OM.PC] Routine - Assessment/Plan Last 24 Hours: My Active Orders 03/01/21 10:39 Saline Lock Insert [OM.PC] Routine
== END 2021-03-01 12:34 | disposition home or self-care (01) ==
LOC: JP.ED 10:18
DX: A08.4 Viral intestinal infection, unspecified (principal); E66.9 Obesity, unspecified; Z68.30 Body mass index [BMI] 30.0-30.9, adult; Z20.822 Contact with and (suspected) exposure to COVID-19
CPT/HCPCS: 36415; 80053; 83605; 85025; 87635; 96374; 99284; J2405; J7030; U0002

== ENCOUNTER 2022-01-09 18:24 | Emergency (ER) | payer MEDICAID ==
[2022-01-09] MEDS ORDERED: Ketorolac 30 MG/ML SDV IVPUSH ONE (19:25)
[2022-01-09] MEDS ORDERED: Sodium Chloride 0.9% 500 ML IV ONE (19:26)
[2022-01-09 20:01] LABS: ESTIMATED GFR 100 mL/min (>60)
[2022-01-09] MEDS: Ondansetron 4 MG/2 ML SDV IVPUSH ONE ×2 (20:05→20:06)
[2022-01-09] MEDS ORDERED: Iopamidol 612 MG/ML 100 ML Bottle IV SCH (20:30)
[2022-01-09] MEDS ORDERED: Sodium Chloride 0.9% 75 ML IV SCH (20:30)
[2022-01-09] MEDS ORDERED: HYDROmorphone 1 MG/ML Syringe IVPUSH ONE (21:04)
[2022-01-09] MEDS ORDERED: HYDROmorphone 0.5 MG/0.5 ML Syringe IVPUSH ONE (21:43)
[2022-01-09] MEDS ORDERED: Dextrose 5%-0.9% NaCl 1,000 ML IV SCH (22:00)
[2022-01-09] MEDS ORDERED: cefTRIAXone 1 GM in Sodium Chloride 0.9% 50 ML IV ONE (22:21)
== END 2022-01-09 23:45 | disposition home or self-care (01) ==
LOC: JP.ED 18:24
DX: N39.0 Urinary tract infection, site not specified (principal); E66.9 Obesity, unspecified; Z68.29 Body mass index [BMI] 29.0-29.9, adult
CPT/HCPCS: 36415; 74177; 80053; 81001; 81025; 83690; 85025; 86140; 87086; 96361; 96365; 96375; 96376; 99284; J0696; J1170; J1885; J2405; J3490; J7040; Q9967; 99282